=== PATIENT | female | born 1930 | race Caucasian/White ===

== ENCOUNTER 2017-11-07 14:45 | Inpatient (IN) | payer OTHER ==
[2017-11-07] MEDS: ONDANSETRON 4 MG INJ IV ×2 (15:10→19:58)
[2017-11-07] MEDS: SOD CHLORIDE 0.9% 1,000 ML IV ×2 (15:10→22:55)
[2017-11-07 15:32] LABS: ADD MAN DIFF? NO
[2017-11-07 15:36] LABS: WHITE BLOOD COUNT 15.2 10^3/ul (4.8-10.8)
[2017-11-07 15:36] LABS: BASOPHILS % 0.1 % (0.0-2.0); EOSINOPHILS # 0.1 10^3/ul (0.0-0.5); EOSINOPHILS % 0.4 % (0.0-7.0); HEMATOCRIT 31.7 % (37.0-47.0); HEMOGLOBIN 10.2 g/dl (12.0-16.0); LYMPHOCYTES # 1.7 10^3/ul (0.8-2.9); LYMPHOCYTES % 11.1 % (15.0-51.0); MEAN CORPUSCULAR HEMOGLOBIN 23.3 pg (29.0-33.0); MEAN CORPUSCULAR HGB CONC 32.2 g/dl (32.0-37.0); MEAN CORPUSCULAR VOLUME 72.4 fl (82.0-101.0); MEAN PLATELET VOLUME 9.9 fl (7.4-10.4); MONOCYTE # 1.3 10^3/ul (0.3-0.9); MONOCYTES % 8.2 % (0.0-11.0); NEUTROPHIL # 12.1 10^3/ul (1.6-7.5); NEUTROPHILS % 79.7 % (39.0-77.0); PLATELET COUNT 291 10^3/UL (140-415); RED BLOOD COUNT 4.38 10^6/ul (4.20-5.40); RED CELL DISTRIBUTION WIDTH 15.9 % (11.5-14.5)
[2017-11-07 15:40] LABS: ADD UMIC NO; UR ASCORBIC ACID NEGATIVE (NEGATIVE); UR BILIRUBIN (Dip) NEGATIVE (NEGATIVE); UR BLOOD (Dip) NEGATIVE (NEGATIVE); UR CLARITY CLEAR (CLEAR); UR COLOR STRAW (YELLOW); UR GLUCOSE (Dip) NEGATIVE (NEGATIVE); UR KETONES (Dip) NEGATIVE (NEGATIVE); UR LEUKOCYTE ESTERASE (Dip) NEGATIVE Leu/ul (NEGATIVE); UR NITRITE (Dip) NEGATIVE (NEGATIVE); UR SPECIFIC GRAVITY (Dip) 1.005 (1.003-1.030); UR TOTAL PROTEIN (Dip) NEGATIVE (NEGATIVE); UR UROBILINOGEN (Dip) NEGATIVE (NEGATIVE)
[2017-11-07 16:04] LABS: ALANINE AMINOTRANSFERASE 49 IU/L (13-69); ALBUMIN 3.5 g/dl (3.3-4.9); ALBUMIN/GLOBULIN RATIO 1.12; ALKALINE PHOSPHATASE 102 IU/L (42-121); ANION GAP 12 (8-16); ASPARTATE AMINO TRANSFERASE 35 IU/L (15-46); BILIRUBIN,INDIRECT 0.3 mg/dl (0-1.1); BILIRUBIN,TOTAL 0.3 mg/dl (0.2-1.3); BLOOD UREA NITROGEN 16 mg/dl (7-20); CALCIUM 8.2 mg/dl (8.4-10.2); CARBON DIOXIDE 29 mmol/L (21-31); CHLORIDE 98 mmol/L (97-110); GLUCOSE 138 mg/dl (70-220); LIPASE 185 U/L (23-300); SODIUM 135 mmol/L (135-144); TOTAL PROTEIN 6.6 g/dl (6.1-8.1)
[2017-11-07 16:17] LABS: TROPONIN-I < 0.012 ng/ml (0.00-0.12)
[2017-11-07] MEDS: ASPIRIN 81 MG TAB PO (19:58)
[2017-11-07] MEDS ORDERED: ONDANSETRON 4 MG INJ IV ×2 (20:00→21:30)
[2017-11-07] MEDS ORDERED: ACETAMINOPHEN 325 MG TAB PO (20:00)
[2017-11-07 20:26] LABS: INR 1.21; PARTIAL THROMBOPLASTIN TIME 33.6 Sec (25.0-35.0); PROTIME 15.5 Sec (11.9-14.9); PT RATIO 1.2
[2017-11-07] MEDS: PROMETHAZINE 25 MG TAB PO (20:46)
[2017-11-07] MEDS ORDERED: NACL 0.9% 3 ML SYG IV (21:30)
[2017-11-07] MEDS ORDERED: ALPRAZOLAM 0.5 MG TAB PO (21:30)
[2017-11-07] MEDS ORDERED: morphine 2 MG INJ IV (21:30)
[2017-11-07 21:42] LABS: CREATINE KINASE 52 IU/L (23-200)
[2017-11-07 21:55] LABS: B-TYPE NATRIURETIC PEPTIDE 1300 PG/ML (0-450); CK INDEX 1.8; CK-MB 0.95 ng/ml (0.0-2.4); TROPONIN-I < 0.012 ng/ml (0.00-0.12)
[2017-11-08] MEDS: ALPRAZOLAM 0.25 MG TAB PO ×2 (01:23→23:25)
[2017-11-08 06:44] LABS: ADD MAN DIFF? NO
[2017-11-08 06:47] LABS: WHITE BLOOD COUNT 11.5 10^3/ul (4.8-10.8)
[2017-11-08 06:47] LABS: BASOPHILS % 0.1 % (0.0-2.0); EOSINOPHILS % 0.2 % (0.0-7.0); HEMATOCRIT 30.3 % (37.0-47.0); HEMOGLOBIN 9.7 g/dl (12.0-16.0); LYMPHOCYTES % 17.6 % (15.0-51.0); MEAN CORPUSCULAR HEMOGLOBIN 23.3 pg (29.0-33.0); MEAN CORPUSCULAR VOLUME 72.7 fl (82.0-101.0); MEAN PLATELET VOLUME 10.2 fl (7.4-10.4); MONOCYTE # 1.4 10^3/ul (0.3-0.9); MONOCYTES % 12.5 % (0.0-11.0); NEUTROPHILS % 69.1 % (39.0-77.0); PLATELET COUNT 301 10^3/UL (140-415); RED BLOOD COUNT 4.17 10^6/ul (4.20-5.40); RED CELL DISTRIBUTION WIDTH 16.2 % (11.5-14.5)
[2017-11-08 07:34] LABS: CREATINE KINASE 56 IU/L (23-200)
[2017-11-08 07:43] LABS: CK INDEX 1.8; CK-MB 1.03 ng/ml (0.0-2.4)
[2017-11-08 07:44] LABS: TROPONIN-I < 0.012 ng/ml (0.00-0.12)
[2017-11-08 07:52] LABS: ALANINE AMINOTRANSFERASE 42 IU/L (13-69); ALBUMIN/GLOBULIN RATIO 1.03; ALKALINE PHOSPHATASE 84 IU/L (42-121); ANION GAP 14 (8-16); ASPARTATE AMINO TRANSFERASE 22 IU/L (15-46); BILIRUBIN,INDIRECT 0.4 mg/dl (0-1.1); BILIRUBIN,TOTAL 0.4 mg/dl (0.2-1.3); BLOOD UREA NITROGEN 14 mg/dl (7-20); CALCIUM 8.5 mg/dl (8.4-10.2); CARBON DIOXIDE 28 mmol/L (21-31); CHLORIDE 99 mmol/L (97-110); CHOL/HDL RATIO 2.7 RATIO; CHOLESTEROL 133 mg/dl (100-200); CREATININE 0.72 mg/dl (0.44-1.00); GLUCOSE 89 mg/dl (70-220); HDL CHOLESTEROL 49 mg/dl (33-92); LDL CHOLESTEROL,CALCULATED 71 mg/dl; MAGNESIUM 1.8 mg/dl (1.7-2.5); SODIUM 137 mmol/L (135-144); TOTAL PROTEIN 5.9 g/dl (6.1-8.1); TRIGLYCERIDES 67 mg/dl (0-149)
[2017-11-08 08:21] LABS: THYROID STIMULATING HORMONE 0.747 MIU/L (0.465-4.680)
[2017-11-08] MEDS: CITALOPRAM 20 MG TAB PO (09:35)
[2017-11-08] MEDS: APIXABAN 5 MG TABLET PO ×2 (09:36→21:35)
[2017-11-08] MEDS: ASPIRIN (EC) 81 MG TAB PO (09:36)
[2017-11-08 11:02] LABS: CREATINE KINASE 52 IU/L (23-200)
[2017-11-08 11:06] LABS: CK INDEX 1.7; CK-MB 0.89 ng/ml (0.0-2.4)
[2017-11-08 11:08] LABS: TROPONIN-I < 0.012 ng/ml (0.00-0.12)
[2017-11-08 11:29] LABS: IRON 22 ug/dl (35-150)
[2017-11-08 11:38] LABS: % IRON SATURATION 6 % SAT (22-52); TOTAL IRON BINDING CAPACITY 395 ug/dl (241-421)
[2017-11-08] MEDS: ACETAMINOPHEN 325 MG TAB PO (17:11)
[2017-11-08] MEDS: ATORVASTATIN 10 MG TAB PO (21:35)
[2017-11-09 07:42] LABS: ADD MAN DIFF? NO
[2017-11-09 07:46] LABS: BASOPHILS % 0.4 % (0.0-2.0); EOSINOPHILS # 0.2 10^3/ul (0.0-0.5); EOSINOPHILS % 2.2 % (0.0-7.0); HEMATOCRIT 30.2 % (37.0-47.0); HEMOGLOBIN 9.5 g/dl (12.0-16.0); LYMPHOCYTES # 2.1 10^3/ul (0.8-2.9); LYMPHOCYTES % 26.5 % (15.0-51.0); MEAN CORPUSCULAR HEMOGLOBIN 22.9 pg (29.0-33.0); MEAN CORPUSCULAR HGB CONC 31.5 g/dl (32.0-37.0); MEAN CORPUSCULAR VOLUME 72.9 fl (82.0-101.0); MONOCYTES % 12.7 % (0.0-11.0); NEUTROPHIL # 4.7 10^3/ul (1.6-7.5); PLATELET COUNT 285 10^3/UL (140-415); RED BLOOD COUNT 4.14 10^6/ul (4.20-5.40); RED CELL DISTRIBUTION WIDTH 16.1 % (11.5-14.5)
[2017-11-09 08:04] LABS: ANION GAP 11 (8-16); BLOOD UREA NITROGEN 14 mg/dl (7-20); CALCIUM 8.6 mg/dl (8.4-10.2); CARBON DIOXIDE 30 mmol/L (21-31); CHLORIDE 103 mmol/L (97-110); CREATININE 0.71 mg/dl (0.44-1.00); GLUCOSE 88 mg/dl (70-220); MAGNESIUM 1.9 mg/dl (1.7-2.5); SODIUM 140 mmol/L (135-144)
[2017-11-09 08:29] LABS: TROPONIN-I < 0.012 ng/ml (0.00-0.12)
[2017-11-09] MEDS: CITALOPRAM 20 MG TAB PO (08:32)
[2017-11-09] MEDS: APIXABAN 5 MG TABLET PO ×2 (08:32→20:31)
[2017-11-09] MEDS: FERROUS SULFATE (EC) 325 MG TAB PO (13:23)
[2017-11-09] MEDS: FAMOTIDINE 20 MG TAB PO (20:31)
[2017-11-09] MEDS: ATORVASTATIN 10 MG TAB PO (20:31)
[2017-11-09] MEDS: ALPRAZOLAM 0.25 MG TAB PO (22:12)
[2017-11-10] MEDS: ACETAMINOPHEN 325 MG TAB PO ×2 (06:25→17:11)
[2017-11-10 08:11] LABS: ADD MAN DIFF? NO
[2017-11-10 08:23] LABS: BASOPHILS % 0.4 % (0.0-2.0); EOSINOPHILS # 0.1 10^3/ul (0.0-0.5); EOSINOPHILS % 1.7 % (0.0-7.0); HEMATOCRIT 30.1 % (37.0-47.0); HEMOGLOBIN 9.7 g/dl (12.0-16.0); LYMPHOCYTES % 27.5 % (15.0-51.0); MEAN CORPUSCULAR HEMOGLOBIN 23.2 pg (29.0-33.0); MEAN CORPUSCULAR HGB CONC 32.2 g/dl (32.0-37.0); MEAN PLATELET VOLUME 10.3 fl (7.4-10.4); MONOCYTE # 0.9 10^3/ul (0.3-0.9); MONOCYTES % 12.4 % (0.0-11.0); NEUTROPHIL # 4.2 10^3/ul (1.6-7.5); NEUTROPHILS % 57.7 % (39.0-77.0); PLATELET COUNT 273 10^3/UL (140-415); RED BLOOD COUNT 4.18 10^6/ul (4.20-5.40); RED CELL DISTRIBUTION WIDTH 16.4 % (11.5-14.5)
[2017-11-10 08:23] LABS: WHITE BLOOD COUNT 7.2 10^3/ul (4.8-10.8)
[2017-11-10] MEDS: APIXABAN 5 MG TABLET PO (08:28)
[2017-11-10] MEDS: CITALOPRAM 20 MG TAB PO (08:28)
[2017-11-10] MEDS: FERROUS SULFATE (EC) 325 MG TAB PO (08:28)
[2017-11-10 08:45] LABS: ANION GAP 13 (8-16); BLOOD UREA NITROGEN 12 mg/dl (7-20); CALCIUM 8.4 mg/dl (8.4-10.2); CARBON DIOXIDE 28 mmol/L (21-31); CHLORIDE 104 mmol/L (97-110); CREATININE 0.77 mg/dl (0.44-1.00); GLUCOSE 86 mg/dl (70-220); POTASSIUM 3.9 mmol/L (3.5-5.1); SODIUM 141 mmol/L (135-144)
== END 2017-11-10 18:29 | disposition home or self-care (01) | DRG 312 ==
LOC: TEL 20:00 → E/R 14:45
DX: R55 Syncope and collapse (principal); I11.0 Hypertensive heart disease with heart failure; I31.3 Pericardial effusion (noninflammatory); I50.30 Unspecified diastolic (congestive) heart failure; I27.20 Pulmonary hypertension, unspecified; I48.91 Unspecified atrial fibrillation; F41.9 Anxiety disorder, unspecified; E66.9 Obesity, unspecified; R73.03 Prediabetes; E78.5 Hyperlipidemia, unspecified; D50.9 Iron deficiency anemia, unspecified; Z79.82 Long term (current) use of aspirin; Z79.01 Long term (current) use of anticoagulants; Z95.3 Presence of xenogenic heart valve
CPT/HCPCS: 36415; 70450; 71045; 74176; 80048; 80053; 80061; 81003; 82550; 82553; 83036; 83540; 83690; 83735; 83880; 84443; 84484; 85025; 85610; 85730; 93005; 93306; 93880; 96374; 96376; 97110; 97116; 97161; 99285-25